=== PATIENT | male | born 1970 | race Caucasian/White ===

== ENCOUNTER 2019-08-14 06:47 | Emergency (ER) | payer BC, SELFPAY ==
[2019-08-14 06:48] VITALS: BP 111/77; PULSE 59; RESP 16; TEMP 36.4; O2SAT 100; BMI 18.8
--- NOTE | 2019-08-14 07:11 | RAD_ITS ---
STUDY: X-RAY CHEST REASON FOR EXAM: Male, 49 years old. Chest pain X2 days. TECHNIQUE: Single AP portable view of the chest. COMPARISON: Comparison is made with prior study dated July 04, 2013. FINDINGS: EKG electrodes are seen. There is hyperinflation of the lungs consistent with chronic obstructive lung disease (COPD). There is no demonstrated pleural abnormality. Normal size heart. Normal mediastinum and yue. Normal visualized pulmonary arteries. Normal visualized aortic arch and descending thoracic aorta. Normal visualized thoracic spine. Normal visualized ribs, clavicles, and shoulders. There is no demonstrated abnormality of the visualized soft tissue structures of the upper abdomen. RAD/Chest 1 View (Portable) IMPRESSION: Hyperinflation. Electronically Signed: Salty Morin, at 7:55 EDT , Service support ,
--- NOTE | 2019-08-14 07:11 | EKG12_ITS ---
Test Reason : CP Blood Pressure : / mmHG Vent. Rate : 056 BPM Atrial Rate : 056 BPM P-R Int : 158 ms QRS Dur : 082 ms QT Int : 420 ms P-R-T Axes : 079 100 064 degrees QTc Int : 405 ms Sinus bradycardia Rightward axis ST elevation, consider early repolarization Borderline ECG Confirmed by EVAN ZHU, MARIBEL ([id number]), editor trade journal REFUGIO GAMBINO ([id number]) on 08/15/2019 1:15:31 PM Referred By: FANNY Confirmed By:MARIBEL GORDON MD
--- NOTE | 2019-08-14 07:12 | ED.VIS.GEN ---
History of Present Illness Chief Complaint: Chest Pain Informant: Patient Onset: Yesterday Context: Gradual Onset Current Severity: Moderate Maximum Severity: Moderate Narrative: Patient presents with sharp right-sided chest pain that is been present since yesterday morning. He states he has increased pain with a deep breath. He denies any known injury. He states the pain is worse when he leans back against something. He denies fever or chills. He denies cough. No personal or family history of cardiac disease or DVT/PE. Past Medical History - Allergies and Home Meds Allergies/Adverse Reactions: Allergies No Known Allergies Allergy (Verified 08/14/19 06:51) Primary Care Physician: Matthew Newton MD [NON-STAFF] - Past Medical History: None Smoking Status: Current every day smoker Review of Systems General: Denies: Chills, Fever Eyes: Denies: Visual changes - bilaterally ENT: Denies: Bilateral ear pain Cardiovascular: Reports: Chest pain Respiratory: Reports: Dyspnea. Denies: Cough Gastrointestinal: Denies: Abdominal pain, Nausea, Vomiting, Diarrhea Musculoskeletal: Denies: Swelling, Extremity Pain Skin: Denies: Rash Neurological: Denies: Headache Hematologic: Denies: Easy bruising, Easy bleeding Allergy: Denies: Uticaria Physical Exam Vital Signs/Narrative: Vital Signs Temp Pulse Resp BP Pulse Ox 08/14/19 06:48 97.5 F L 59 L 16 111/77 100 Inital Vital Signs reviewed: Yes General: Well nourished, Well developed Head: Normocephalic ENT: Moist mucous membranes Neck: Supple Cardiovascular: Regular rate, Regular rhythm Respiratory: No distress, CTA bilaterally, Chest tenderness - Mild chest wall tenderness. No crepitus. Abdomen: Soft, Nontender Extremities: Nontender, No edema Skin: Normal color Neurological: Alert, Oriented x3 Psychological: Normal affect Diagnostic/Tx/Re-eval Impressions Chest X-Ray 08/14/19 07:11 IMPRESSION: Hyperinflation. Electronically Signed: Salty Morin, at 7:55 EDT , Service support , 08/14/19 07:11 Chest 1 View (Portable) [RAD] Stat Laboratory Results 08/14/19 08/14/19 08/14/19 07:00 07:00 07:00 WBC 5.9 RBC 4.36 L Hgb 14.2 Hct 42.5 MCV 97.5 H MCH 32.6 H MCHC 33.4 RDW Std Deviation 43.4 RDW Coeff of Miguel 12.0 Plt Count 225 MPV 10.0 Immature Gran % (Auto) 0.200 Neut % (Auto) 51.4 Lymph % (Auto) 34.8 Maverick % (Auto) 7.1 Eos % (Auto) 5.7 H Baso % (Auto) 0.8 Absolute Neuts (auto) 3.0 Absolute Lymphs (auto) 2.06 Nucleated RBC % 0 D-Dimer Quant (PE/DVT) <= 0.27 Sodium 138 Potassium 4.5 Chloride 105 Carbon Dioxide 25.0 Anion Gap 8 BUN 12 Creatinine 1.17 Estim Creat Clear Calc 68.27 Est GFR (MDRD) Af Amer 85 Est GFR (MDRD) Non-Af 70 BUN/Creatinine Ratio 10.3 Glucose 99 Calcium 8.8 Troponin I < 0.015 - EKG Initial EKG Interpretation: Sinus Bradycardia - Sinus bradycardia at 56 bpm. Elevated J-point consistent with early re-pole noted. No acute ST change when compared to prior study. - Medical Decision Making Patient was given aspirin on arrival along with morphine and Zofran for pain. On repeat evaluation he is resting comfortably. Test results are discussed with him. Based on his current symptoms I suspicion is he has pleurisy. He will be treated with steroids. He is to follow-up with his primary care physician. He is given return instructions. ED Disposition - Plan for ED Patient: Disposition: Home or Assisted Living Diagnosis: Pleurisy Instructions: ED Chest Pain Pleurisy Prescriptions: Prednisone [Deltasone] 40 mg PO DAILY #8 tab Transmission Status: P[facility] to [facility] Additional Instructions: Follow-up with your physician in 3-5 days if not improving. Return to ED for any further concerns or symptoms.
[2019-08-14] MEDS: Aspirin 81 MG TAB.CHEW 324 MG PO (07:19)
[2019-08-14] MEDS: Ondansetron 4 MG/2 ML Vial IV (07:19)
[2019-08-14] MEDS: Morphine 4 MG/ML Syringe IV (07:20)
[2019-08-14 07:21] LABS: Absolute Lymphocyte Count 2.06 X10^3/uL (0.83-4.51); Basophil# 0.05 X10^3/uL; Basophil% 0.8 % (0-1); Eosinophil# 0.34 X10^3/uL; Eosinophils% 5.7 % (0-5); Hematocrit 42.5 % (40-54); Hemoglobin 14.2 g/dL (13.0-16.5); Lymphocyte # 2.06 X10^3/ul (4.0); Lymphocyte % 34.8 % (19-41); Mean Corp Hgb Conc 33.4 g/dL (32-36); Mean Corpuscular Hgb 32.6 pg (27.0-32.0); Mean Corpuscular Volume 97.5 fL (80-94); Monocyte# 0.42 X10^3/uL; Monocyte% 7.1 % (0-10); NRBC Flagged by Analyzer 0 % (0-5); Neutrophil # 3.04 X10^3/uL (2.7-7.7); Neutrophil % 51.4 % (47-70); Platelet Count 225 K/mm3 (150-450); RBC Distribution Width SD 43.4 fl (35.1-43.9); Red Blood Count 4.36 M/mm3 (4.6-6.2); White Blood Count 5.9 K/mm3 (4.4-11.0)
[2019-08-14] MEDS: 0.9% Normal Saline 1,000 ML 150 ML IV (07:23)
[2019-08-14 07:24] VITALS: O2SAT 100
[2019-08-14 07:38] LABS: Anion Gap 8 (5-15); BUN 12 mg/dL (7-18); BUN/Creat Ratio 10.3 RATIO (10-20); Calcium,Total 8.8 mg/dL (8.5-10.1); Chloride 105 mmol/L (98-107); Creatinine, Serum 1.17 mg/dL (0.70-1.30); EST Glomerular Filtration Rate 70 mL/min (>60); Est Glom Filt Rate - Afr Amer 85 mL/min (>60); Estimated Creatinine Clearance 68.27 ml/min; Glucose 99 mg/dL (74-106); Potassium 4.5 mmol/L (3.5-5.1); Sodium Level 138 mmol/L (136-145)
[2019-08-14 09:00] LABS: D-Dimer Quantitative (DVT/PE) <= 0.27 FEU/ug/m (0.27-0.49)
[2019-08-14 09:03] VITALS: BP 116/73; PULSE 45; RESP 13; O2SAT 100
[2019-08-14] MEDS: predniSONE 20 MG Tablet 60 MG PO (09:19)
[2019-08-14 09:22] VITALS: BP 112/85; PULSE 51; RESP 16; O2SAT 100
--- NOTE | 2019-08-14 09:24 | ED.RN ---
Pt given written and verbal DC instructions. Pt verbalized understanding of DC instructions. pt ambulated from the department without restrictions
== END 2019-08-14 09:29 | disposition home or self-care (01) ==
PROVIDERS: Emergency Provider Emergency Medicine
DX: R09.1 Pleurisy (principal); F17.200 Nicotine dependence, unspecified, uncomplicated
CPT/HCPCS: 71045; 80048; 84484; 85025; 85379; 93005; 96361; 96374; 96375; 99285; J7030; J7120; J2405

== ENCOUNTER 2024-08-22 13:34 | Emergency (ER) | payer BC, SELFPAY ==
[2024-08-22 13:35] VITALS: BP 106/77; PULSE 74; RESP 18; TEMP 37; O2SAT 98; BMI 19.1
--- NOTE | 2024-08-22 14:22 | CT_ITS ---
PROCEDURE: CTA CHEST W/WO CONTRAST 08/22/2024 REASON FOR EXAM: SOB, RIGHT RIB PAIN WITH DEEP INSIPRIATION TECHNIQUE: CTA CHEST W/WO CONTRAST Multiplanar Sagittal and Coronal images were obtained. CONTRAST: 100 mL of Isovue 370 One or more dose reduction techniques were used (e.g., Automated exposure control, adjustment of the mA and/or kV according to patient size, use of iterative reconstruction technique). RADIATION DOSE SUMMARY: DLP: 220 mGycm COMPARISON: None FINDINGS: PULMONARY ARTERIES: No evidence of pulmonary embolism. LUNGS AND PLEURA: No consolidations. No definite pulmonary edema. No mass or nodule. No pleural effusion. No pneumothorax. MEDIASTINUM: No lymphadenopathy or mass. The heart shows no acute findings. The aorta shows no acute findings. The pulmonary trunk, and branches of the vessels in the mediastinum are within normal limits. SUPRACLAVICULAR AND AXILLARY: No abnormalities seen in these regions. No mass or significant lymphadenopathy. UPPER ABDOMEN: The visualized upper abdomen is unremarkable. BONES AND SOFT TISSUES: The ribs are unremarkable. The visualized spine shows no significant acute findings. No focal bony mass lesions noted. The subcutaneous soft tissues are unremarkable. CT/CTA Chest W/WO Contrast IMPRESSION: No acute pulmonary emboli. No focal consolidations. Reading Location: [id number]
[2024-08-22 14:30] LABS: Hematocrit 39.4 % (40-54); Hemoglobin 13.4 g/dL (13.0-16.5); Immature Granulocytes Count 0.010 X10^3/uL (0.0-0.0); Mean Corp Hgb Conc 34.0 g/dL (32-36); Mean Corpuscular Volume 97.3 fL (80-94); Mean Platelet Vol. 8.7 fl (6.2-12.0); NRBC Flagged by Analyzer 0 % (0-5); Platelet Count 257 K/mm3 (150-450); RBC Distribution Width CV 12.2 % (11.6-14.6); RBC Distribution Width SD 43.8 fl (35.1-43.9); Red Blood Count 4.05 M/mm3 (4.6-6.2); White Blood Count 5.3 K/mm3 (4.4-11.0)
[2024-08-22 15:04] LABS: Anion Gap 10 (5-15); BUN 6 mg/dL (4-19); BUN/Creat Ratio 5.3 RATIO (10-20); Calcium,Total 8.9 mg/dL (7.6-11.0); Carbon Dioxide 22.9 mmol/L (21.0-32.0); Chloride 106 mmol/L (98-108); Estimated Creatinine Clearance 67.78 ml/min (50-250); Glucose 99 mg/dL (70-99); Potassium 4.0 mmol/L (3.3-5.1); Troponin T High Sensitivity 7 ng/L (<=22)
--- NOTE | 2024-08-22 16:41 | EX.ED.DYSGE1 ---
HPI History of Present Illness Chief Complaint: Chest Other Narrative Narrative: Patient is a 54-year-old male with no known significant with a physician on a regular basis who presented to the emergency department the chief complaint of left-sided pain in his ribs. He states that he woke up this morning went to work and shortly after being at work he noted that he developed pain in the left rib cage he states that it hurts if he takes a deep breath. He states that it is constant all day long prompting him to come here for further evaluation management. He states that he does smoke denies any drug use. He denies any recent travel history denies any history of blood clots. Patient denies any specific injuries to cause his pain. PFSH [facility] Home Medications ?Medication ?Instructions ?Recorded ?Last Taken ?Type prednisone 20 mg tablet 40 mg (2 x 20 mg) PO DAILY #8 tabs 08/14/19 Unknown Rx cyclobenzaprine 10 mg tablet 10 mg PO TID PRN muscle spasm #20 08/22/24 Unknown Rx tabs lidocaine 5 % topical patch 1 patch topical DAILY #15 ea 08/22/24 Unknown Rx (DermacinRx Lidocan) Allergy/AdvReac Type Severity Reaction Status Date / Time No Known Allergies Allergy Verified 08/22/24 13:37 Social History Smoking Status: Current every day smoker tobacco type: cigarettes ROS ROS ED ROS Narrative Constitutional: Denies fevers, chills, headaches Eyes: Denies double vision blurry vision changes vision Cardiovascular: Complains of left-sided chest discomfort mainly in his ribs as noted above denies palpitations Respiratory: Denies coughing wheezing shortness of breath Abdomen: Denies abdominal pain nausea vomit diarrhea : Denies any urinary symptoms Neurological: Denies numbness, wheeze, tingling Musculoskeletal: States that his pain is radiating to his back Skin: Denies any rashes or lesions EXAM Physical Exam Narrative Exam Narrative: General: Patient is lying in bed rest comfortably did not appear to be in acute distress Head: Atraumatic, normocephalic Eyes: PERRL bilaterally, EOMI bilateral, no conjunctival injection noted Neck: Soft, supple, trachea midline Cardiovascular: Regular in rhythm no murmurs gallops rubs noted Respiratory: Clear to auscultation bilaterally no rales rhonchi or wheezes noted Abdomen: Soft, nondistended, nontender to palpation Musculoskeletal: No tenderness palpation of the left rib cage no tenderness palpation midline thoracolumbar spine Extremities: +5/5 strength noted in the bilateral upper and lower extremities, radial pulses +2/4 in the bilateral extremities Neurological: Patient following commands knew that he was at [facility] year is 2024 Skin: Warm, dry, tact no rashes or lesions noted Const Vital Signs: 08/22/24 13:35 08/22/24 13:35 Temperature 98.6 F Temperature Source Oral Pulse Rate 74 Respiratory Rate 18 Respiratory Effort Normal Non-Labored Blood Pressure 106/77 Blood Pressure Mean 86 Pulse Ox 98 Oxygen Delivery Method Room Air MDM MDM MDM Narrative Medical decision making narrative: Patient is a 54-year-old male who presented to the emergency department the chief complaint of left side pain that started around 630 this morning and has been constant. On the differential diagnosis includes but not limited to ACS, pneumonia, pneumothorax, PE, mass in his lungs. Once workup is obtained reviewed he will be reevaluated. Patient's CBC reviewed showed no evidence leukocytosis white blood count normal 5.3, he was 13.4, platelet count normal at 257. Patient sodium was 139, potassium normal at 4, creatinine was 1.13. Patient's calcium normal at 8.9, troponin was noted to be normal at 7. Patient's EKG was reviewed showed sinus bradycardia with a rate of 59 bpm with a MT interval 148. This was compared to a previous EKG from August 14, 2019 and remains largely unchanged. Patient CT of his chest reviewed and showed no evidence of PE no focal consolidations. At this point time patient's delta troponin is pending. At this point in time I have low suspicion for cardiac etiology as his symptoms have been persistent since 6:30 AM this morning and his first troponin is normal. I advised the patient that if he develops a rash over the left rib cage she should immediately return to the emergency department as he could be developing shingles and if this case he could be started on a medication to help with his symptoms and duration. He is advised to use the prescriptions as prescribed. He is encouraged return with worsening symptoms or any concerns he is agreeable this plan. Patients case was signed out to oncoming provider see their note for ultimate disposition and details. Lab Data Labs: Laboratory Results - last 24 hr 08/22/24 14:20 WBC 5.3 RBC 4.05 L Hgb 13.4 Hct 39.4 L MCV 97.3 H MCH 33.1 H MCHC 34.0 RDW Std Deviation 43.8 RDW Coeff of Miguel 12.2 Plt Count 257 MPV 8.7 Immature Gran % (Auto) 0.200 Neut % (Auto) 49.6 Lymph % (Auto) 38.4 Moody % (Auto) 7.2 Eos % (Auto) 3.8 Baso % (Auto) 0.8 Absolute Neuts (auto) 2.6 Absolute Lymphs (auto) 2.03 Nucleated RBC % 0 Sodium 139 Potassium 4.0 Chloride 106 Carbon Dioxide 22.9 Anion Gap 10 BUN 6 Creatinine 1.13 Estim Creat Clear Calc 67.78 Est GFR (MDRD) Non-Af 77 BUN/Creatinine Ratio 5.3 L Glucose 99 Calcium 8.9 Troponin T High Sens 7 Radiography Diagnostic Testing: Clinical Impression(s) from Imaging Studies Chest CTA 08/22/24 14:22 IMPRESSION: No acute pulmonary emboli. No focal consolidations. Reading Location: [facility] Discharge Plan Triage Chief Complaint: Chest Other ED Provider: Edgar Campbell Dx/Rx/DC Orders Clinical Impression: Rib pain on left side, Chest pain, Tobacco use Prescriptions: New lidocaine [DermacinRx Lidocan] 5 % adhesive patch,medicated 1 patch topical DAILY Qty: 15 0RF Rx Instructions: leave on most painful area for up to 12 hrs cyclobenzaprine 10 mg tablet 10 mg PO TID PRN (Reason: muscle spasm) Qty: 20 0RF No Action prednisone 20 MG tablet 40 mg PO DAILY Qty: 8 0RF Rx Instructions: With food Primary Care Provider: Care Physician,No Primary Referrals: Care Physician,No Primary [Primary Care Provider] - Nathalia Schreiber, PHARMACEUTICAL OPERATOR-C [[facility]] - Activity Restrictions/Additional Instructions: Follow-up with the doctor they referred to. Use the prescriptions are sent to your pharmacy as prescribed. Rotate Tylenol and ibuprofen [id number] when you do this you take something every 3 hours for pain. Max dose Tylenol in 24 hours 4000 mg max dose of ibuprofen in 24 hours 3200 mg. Watch out for signs of rashes on your rib cage if this is occur you should return to the emergency department to be further evaluated for potential shingles. Use the Lidoderm patch as prescribed as well. Take muscle laxer as prescribed do not operate anything under the influence of this medication as it can make you sleepy and drowsy. Return with any other concerns Print Language: Greenlandic Disposition Disposition: Home, Self Care
[2024-08-22] MEDS: 0.9% Normal Saline (1000mL) 1,000 ML 999 ML IV (18:10)
[2024-08-22 18:11] VITALS: BP 131/76; PULSE 46; RESP 16; O2SAT 100
[2024-08-22 18:40] LABS: Troponin T High Sens 2 HR 7 ng/L (<=22)
[2024-08-22 19:36] VITALS: BP 119/73; PULSE 55; RESP 18; TEMP 36.7; O2SAT 100
== END 2024-08-22 19:38 | disposition home or self-care (01) ==
PROVIDERS: Emergency Provider Emergency Medicine; Referring Provider Emergency Medicine; Visit Provider Emergency Medicine
DX: R07.81 Pleurodynia (principal); F17.210 Nicotine dependence, cigarettes, uncomplicated
CPT/HCPCS: 71275; 80048; 84484; 85025; 93005; 96360; 99284; Q9967; A4216